=== PATIENT | male | born 1995 | race African-American/Black ===

== ENCOUNTER 2018-11-25 15:13 | Emergency (ER) | payer SELFPAY ==
[2018-11-25] MEDS ORDERED: ZIPRASIDONE HCL 20 MG CAPSULE PO ONE (17:44)
[2018-11-25] MEDS ORDERED: DIPHENHYDRAMINE HCL 50 MG CAPSULE PO ONE (17:45)
[2018-11-25] MEDS ORDERED: OLANZAPINE 5 MG TAB.RAPDIS PO ONE (17:45)
--- NOTE | 2018-11-25 17:59 | ER Document Report ---
ED Psych Disorder / Suicide - General TRAVEL OUTSIDE OF THE U.S. IN LAST 30 DAYS: No <NINA BUCKLEY - Last Filed: 11/26/18 11:09> <JAYLA PAYNE - Last Filed: 11/26/18 11:16> - General Chief Complaint: Psych Problem Stated Complaint: ANXIETY Time Seen by Provider: 11/25/18 17:43 Notes: Patient brought in by his mother because he is acting strange and out of control.. Patient has a history of bipolar disorder, PTSD, and was once told he has schizophrenia. He has been on medications, (Depakote 250 twice daily, Zyprexa 20 mg daily, and one other medicine), but has been out of all of his medicines for a month and 1/2-2 months. They recently moved to [place] and do not have a local doctor or anyone to prescribe his medications. Mother says they are living in a hotel. Patient keeps saying he is smelling something and keep spraying around him in the hotel room. He says he is been seeing rats and the mother says there are none there. She says he has been having hallucinations. Feels that somebody is chasing him and shooting at him. This is the first visit to this facility for this patient. No other past medical history can be obtained. Mother says he has no other medical problems. (NINA BUCKLEY) Past Medical History - Social History Smoking Status: Unknown if Ever Smoked Family History: Reviewed & Not Pertinent Psychiatric Medical History: Reports: Hx Bipolar Disorder, Hx Post Traumatic Stress Disorder Surgical Hx: Negative <NINA BUCKLEY - Last Filed: 11/26/18 11:09> Review of Systems <NINA BUCKLEY - Last Filed: 11/26/18 11:09> - Review of Systems Notes: REVIEW OF SYSTEMS: (Information provided by mother, for the most part) CONSTITUTIONAL : Denies fever. EENT: Denies eye, ear, nose or mouth or throat pain or other symptoms. CARDIOVASCULAR: Denies chest pain. RESPIRATORY: Denies cough, chest congestion, or shortness of breath. GASTROINTESTINAL: Denies abdominal pain or nausea, vomiting, or diarrhea. GENITOURINARY: Denies difficulty or painful urinating, urinary frequency, blood in urine. MUSCULOSKELETAL: Denies back or neck pain. Denies joint pain or swelling. SKIN: Denies rash or skin lesions. NEUROLOGICAL: Denies LOC or altered mental status. Denies headache. Denies sensory loss or motor deficits. ALL OTHER SYSTEMS REVIEWED AND NEGATIVE. (NINA BUCKLEY) Physical Exam - Vital signs Interpretation: Normal <NINA BUCKLEY - Last Filed: 11/26/18 11:09> - Vital signs Vitals: Temp Pulse Resp BP Pulse Ox 98.1 F 76 18 128/73 H 98 11/26/18 05:24 11/26/18 05:24 11/26/18 05:24 11/26/18 05:24 11/26/18 05:24 Notes: PHYSICAL EXAMINATION: GENERAL: Well-appearing, in no acute distress. Ambulatory without difficulty. Seems to be somewhat confused HEAD: Atraumatic, normocephalic. EYES: Pupils equal round and reactive to light, extraocular movements intact. ENT: oropharynx clear without exudates. Moist mucous membranes. NECK: Normal range of motion, supple. LUNGS: Breath sounds clear and equal bilaterally. HEART: Regular rate and rhythm without murmurs. ABDOMEN: Soft, nontender. No guarding or rebound. No masses. BACK: No tenderness throughout entire back. EXTREMITIES: Normal range of motion without pain. NEUROLOGICAL: Normal speech, normal gait. Normal sensory, motor, and reflex exams. Awake, alert, and oriented x3. Cranial nerves normal. PSYCH: Confused, cooperative, seems to have to think about his responses to questions. SKIN: Warm, dry, no rashes. (NINA BUCKLEY) Course - Laboratory Result Diagrams: 11/25/18 18:25 11/25/18 18:25 <NINA BUCKLEY - Last Filed: 11/26/18 11:09> - Laboratory Result Diagrams: 11/25/18 18:25 11/25/18 18:25 <JAYLA PAYNE - Last Filed: 11/26/18 11:16> - Re-evaluation Re-evalutation: 11/25/18 18:06 Patient appears to be grossly psychotic. I have initiated treatment with Geodon 20 mg, Zyprexa 10 mg-itis, and 50 mg of Benadryl. IVC paperwork will be completed on the patient. 11/26/18 10:14 11/26/18 10:15 Morning rounds: Chart reviewed and patient interviewed. Patient says he is ready to be discharged. 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 Vital signs are all normal. Lab studies were all essentially normal. Patient appears to be medically stable for transfer or discharge. Coleen Buckley MD (NINA BUCKLEY) - Vital Signs Vital signs: Temp Pulse Resp BP Pulse Ox 98.1 F 76 18 128/73 H 98 11/26/18 05:24 11/26/18 05:24 11/26/18 05:24 11/26/18 05:24 11/26/18 05:24 - Laboratory Laboratory results interpreted by me: 11/25/18 11/25/18 11/25/18 18:25 18:25 18:43 RBC 5.84 H Hgb 17.4 H Total Protein 8.3 H Albumin 5.1 H Urine Ketones TRACE H Urine Urobilinogen 2.0 H Urine Ascorbic Acid 40 H Salicylates < 1.0 L Acetaminophen < 10 L Discharge <NINA BUCKLEY - Last Filed: 11/26/18 11:09> <JAYLA PAYNE - Last Filed: 11/26/18 11:16> - Discharge Clinical Impression: Schizoaffective disorder, bipolar type Condition: Stable Disposition: HOME, SELF-CARE Additional Instructions: You have been evaluated both medical and behavioral health teams have been deemed appropriate for discharge. You have been provided prescriptions for Cogentin 1 mg daily, Depakote 250 mg twice daily, Zyprexa 5 mg twice daily and Vistaril 50 mg every 6 hours as needed; these take as directed. You have been provided a local resource list of area providers including mobile crisis contact information. Please contact an outpatient mental health provider of your choice in the next 3-5 days to make an appointment. Panic Attack The cause of panic attacks is unknown. Symptoms can include chest pain, shortness of breath, palpitations, sweats, and a sense of smothering or impending doom. In time, the panic attacks can lead to generalized anxiety and phobias. Because the symptoms can mimic heart attack, pulmonary embolism, and other serious diseases, the physician has evaluated you for these conditions. There is no evidence of a serious problem. An acute panic attack usually goes away by itself without treatment. A severe attack can be treated with medicine to calm you. Long-term, antidepressant medicines may help prevent attacks. Counselling can also be very beneficial in dealing with panic attacks. Panic attacks are less likely if you are getting regular exercise, proper diet, and plenty of sleep. It's normal for panic attacks to cause many frightening symptoms. However, you should call or return if your symptoms change significantly or if you are worsening. AT ANY TIME, IF YOUR SYMPTOMS CHANGE SIGNIFICANTLY OR WORSEN OR YOU DEVELOP NEW SYMPTOMS, RETURN TO THE EMERGENCY DEPARTMENT IMMEDIATELY FOR RE-EVALUATION. Prescriptions: Hydroxyzine Pamoate [Vistaril 50 mg Capsule] 50 mg PO Q6HP PRN #15 capsule PRN Reason: Benztropine Mesylate [Cogentin 1 mg Tablet] 1 mg PO DAILY #15 tablet Divalproex Sodium [Depakote Er 250 Mg Tablet] 250 mg PO BID #30 tab.sr.24h Olanzapine [Zyprexa 5 mg Tablet] 5 mg PO BID #30 tablet Referrals: [facility] [Outside] - Follow up as needed [facility] [Outside] - Follow up in 3-5 days
[2018-11-25] MEDS ORDERED: DIVALPROEX SODIUM 250 MG TAB.SR.24H PO ONE (18:12)
[2018-11-25] MEDS ORDERED: ZIPRASIDONE HCL 20 MG CAPSULE PO PRN (18:28)
[2018-11-25 18:41] LABS: ABSOLUTE BASOPHILS # (AUTO) 0.1 10^3/uL (0.0-0.2); ABSOLUTE EOSINOPHILS # (AUTO) 0.1 10^3/uL (0.0-0.6); ABSOLUTE LYMPHOCYTES (AUTO) 2.4 10^3/uL (0.5-4.7); ABSOLUTE MONOCYTES (AUTO) 0.4 10^3/uL (0.1-1.4); BASOPHILS % (AUTO) 0.9 % (0-2); EOSINOPHILS % (AUTO) 1.9 % (0-6); HEMATOCRIT 50.6 % (37.9-51.0); HEMOGLOBIN 17.4 g/dL (13.5-17.0); LYMPHOCYTES % (AUTO) 34.3 % (13-45); MEAN CORPUSCULAR HEMOGLOBIN 29.8 pg (27.0-33.4); MEAN CORPUSCULAR HGB CONC 34.4 g/dL (32.0-36.0); MEAN CORPUSCULAR VOLUME 87 fl (80-97); PLATELET COUNT 254 10^3/uL (150-450); RED BLOOD COUNT 5.84 10^6/uL (4.35-5.55); RED CELL DISTRIBUTION WIDTH 13.2 % (11.5-14.0); SEGMENTED NEUTROPHILS % (AUTO) 56.9 % (42-78); TOTAL CELLS COUNTED % (AUTO) 100 %; WHITE BLOOD COUNT 7.1 10^3/uL (4.0-10.5)
[2018-11-25 19:03] LABS: ALANINE AMINOTRANSFERASE 35 U/L (21-72); ALBUMIN 5.1 g/dL (3.5-5.0); ALKALINE PHOSPHATASE 73 U/L (38-126); ANION GAP 11 (5-19); ASPARTATE AMINO TRANSFERASE 23 U/L (17-59); BILIRUBIN,DIRECT 0.3 mg/dL (0.0-0.4); BILIRUBIN,TOTAL 0.9 mg/dL (0.2-1.3); BLOOD UREA NITROGEN 12 mg/dL (7-20); CALCIUM 10.1 mg/dL (8.4-10.2); CARBON DIOXIDE 26 mmol/L (22-30); CHLORIDE 105 mmol/L (98-107); GLUCOSE 86 mg/dL (75-110); POTASSIUM 4.2 mmol/L (3.6-5.0); SODIUM 141.7 mmol/L (137-145); TOTAL PROTEIN 8.3 g/dL (6.3-8.2)
[2018-11-25 19:07] LABS: ACETAMINOPHEN < 10 ug/mL (10-30); ALCOHOL < 10 mg/dL (NONE DETECTED); SALICYLATE < 1.0 mg/dL (2.0-20.0)
[2018-11-25 19:09] LABS: APPEARANCE,URINE SLIGHTLY-CLOUDY; BILIRUBIN,URINE NEGATIVE (NEGATIVE); COLOR,URINE YELLOW; GLUCOSE, URINE NEGATIVE (NEGATIVE); KETONES,URINE TRACE mg/dL (NEGATIVE); LEUKOCYTE ESTERASE,URINE NEGATIVE (NEGATIVE); NITRITE,URINE NEGATIVE (NEGATIVE); PROTEIN,URINE NEGATIVE (NEGATIVE); URINE SPECIFIC GRAVITY 1.024
[2018-11-25 19:25] LABS: URINE AMPHETAMINES SCREEN NEGATIVE; URINE BARBITURATES SCREEN NEGATIVE; URINE BENZODIAZEPINES SCREEN NEGATIVE; URINE COCAINE SCREEN NEGATIVE; URINE MARIJUANA (THC) SCREEN NEGATIVE; URINE METHADONE SCREEN NEGATIVE; URINE PHENCYCLIDINE SCREEN NEGATIVE
[2018-11-26] MEDS ORDERED: OLANZAPINE 5 MG TABLET PO ONE (11:12)
[2018-11-26 11:29] VITALS: BP 137/81
--- NOTE | 2018-11-26 12:11 | PSYCHOLOGICAL NOTE ---
Psych Note - Psych Note Date seen by psych provider: 11/26/18 Time seen by psych provider: 10:00 Psych Note: Reason for Consult: anxiety Patient brought in by his mother because he is acting strange and out of control.. Patient has a history of bipolar disorder, PTSD, and was once told he has schizophrenia. Patient explains that he has been taking his medication however is unable to identify his medications. Patient reports she came to [facility] ED because he had a p anic attack. Patient reports she is feeling fine and wants to go home. Patient is noted to have some difficulty with organized linear conversation as evidenced by some disorganization, easily loses train of thought, and mild confusion. Patient denies thoughts of wanting to harm himself or others. He is unable to identify any mental health diagnosis other than anxiety. Patient's mother arrived to [facility]. She reports the patient has had diagnosis of bipolar disorder and PTSD. She reports that at one point in time he was told the possible schizophrenia. She discloses that when he is on his medication everything is fine however recently they just moved to [place] and have had difficulty switching over his Medicaid because the government shutdown. She reports that the patient has been off his Depakote for at least one month. She confirms that she can fill the prescriptions if they are within reasonable amount. She reports she would like to take the patient home as he is very close to his baseline and feels that staying here will agitate him more. She reports that she will return if the patient decompensates. Behavioral health team contacted [facility] for patient's medications. Patient has not filled prescriptions since 2017 however at that time he was on Depakote 500 mg twice daily, Zyprexa 20 mg daily Cogentin 2 mg daily and Vistaril 50 mg every 6 hours PRN. 296.80 (F31.9) Unspecified Bipolar disorder per history provided by patient's mother 309.81 (F43.10) PTSD per history provided by patient's mother R/O Schizoaffective bipolar type per history provided by patient's mother Impression/plan: Patient is cleared from acute psychiatric services. Patient's mother reports patient is close to baseline and would like to take him home, she feels that he will become more agitated if he stays here. She reports that she will bring him back if he starts to decompensate. She reports that she would just like assistance with medication since coming to [place] and they have been unable to switch over patient's Medicaid. Patient is able to have a conversation with clinician however does demonstrate some disorganization and mild confusion. Patient does deny thoughts of wanting to harm himself or others and reports that he wants to take medication. Dr. Pillai was consulted and the care management this patient; attending physicians in agreement with recommendations and disposition.
--- NOTE | 2018-11-26 12:39 | EKG REPORT ---
SEVERITY:- NORMAL ECG - SINUS RHYTHM : Confirmed by: Adolfo Harden 26-Nov-2018 12:39:09
== END 2018-11-26 11:27 | disposition home or self-care (01) ==
LOC: ER 15:13
DX: F25.0 Schizoaffective disorder, bipolar type (principal); F41.9 Anxiety disorder, unspecified; F43.10 Post-traumatic stress disorder, unspecified
CPT/HCPCS: 93005; 99284; 36415; 80307 ×4; 85025; 80053; 81001; 93010; J3490 ×2

== ENCOUNTER 2018-12-30 23:49 | Emergency (ER) | payer SELFPAY ==
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
[2018-12-31 01:24] LABS: APPEARANCE,URINE SLIGHTLY-CLOUDY; BILIRUBIN,URINE NEGATIVE (NEGATIVE); CALCIUM OXALATE CRYSTALS,URINE FEW /HPF; COLOR,URINE AMBER; GLUCOSE, URINE NEGATIVE (NEGATIVE); KETONES,URINE TRACE mg/dL (NEGATIVE); LEUKOCYTE ESTERASE,URINE NEGATIVE (NEGATIVE); NITRITE,URINE NEGATIVE (NEGATIVE); PROTEIN,URINE 30 mg/dL (NEGATIVE); URINE SPECIFIC GRAVITY 1.032
[2018-12-31 01:45] LABS: URINE AMPHETAMINES SCREEN NEGATIVE; URINE BARBITURATES SCREEN NEGATIVE; URINE BENZODIAZEPINES SCREEN NEGATIVE; URINE COCAINE SCREEN NEGATIVE; URINE MARIJUANA (THC) SCREEN NEGATIVE; URINE METHADONE SCREEN NEGATIVE; URINE PHENCYCLIDINE SCREEN NEGATIVE
[2018-12-31 02:11] LABS: ABSOLUTE EOSINOPHILS # (AUTO) 0.1 10^3/uL (0.0-0.6); ABSOLUTE MONOCYTES (AUTO) 0.4 10^3/uL (0.1-1.4); TOTAL CELLS COUNTED % (AUTO) 100 %
[2018-12-31 02:21] LABS: ABSOLUTE LYMPHOCYTES (AUTO) 2.8 10^3/uL (0.5-4.7); ABSOLUTE NEUT (AUTO) 3.3 10^3/uL (1.7-8.2); BASOPHILS % (AUTO) 0.4 % (0-2); EOSINOPHILS % (AUTO) 1.8 % (0-6); HEMATOCRIT 46.2 % (37.9-51.0); HEMOGLOBIN 16.2 g/dL (13.5-17.0); LYMPHOCYTES % (AUTO) 41.6 % (13-45); MEAN CORPUSCULAR HEMOGLOBIN 30.2 pg (27.0-33.4); MEAN CORPUSCULAR HGB CONC 35.1 g/dL (32.0-36.0); MEAN CORPUSCULAR VOLUME 86 fl (80-97); MONOCYTES % (AUTO) 6.7 % (3-13); PLATELET COUNT 236 10^3/uL (150-450); RED BLOOD COUNT 5.37 10^6/uL (4.35-5.55); RED CELL DISTRIBUTION WIDTH 13.3 % (11.5-14.0); SEGMENTED NEUTROPHILS % (AUTO) 49.5 % (42-78); WHITE BLOOD COUNT 6.7 10^3/uL (4.0-10.5)
[2018-12-31 02:30] LABS: ALANINE AMINOTRANSFERASE 49 U/L (21-72); ALBUMIN 4.8 g/dL (3.5-5.0); ALKALINE PHOSPHATASE 58 U/L (38-126); ANION GAP 14 (5-19); ASPARTATE AMINO TRANSFERASE 34 U/L (17-59); BILIRUBIN,DIRECT 0.2 mg/dL (0.0-0.4); BILIRUBIN,TOTAL 0.6 mg/dL (0.2-1.3); BLOOD UREA NITROGEN 14 mg/dL (7-20); CALCIUM 9.5 mg/dL (8.4-10.2); CARBON DIOXIDE 22 mmol/L (22-30); CHLORIDE 104 mmol/L (98-107); GLUCOSE 109 mg/dL (75-110); SODIUM 139.5 mmol/L (137-145); TOTAL PROTEIN 7.6 g/dL (6.3-8.2)
[2018-12-31 02:39] LABS: ACETAMINOPHEN < 10 ug/mL (10-30); ALCOHOL < 10 mg/dL (NONE DETECTED); SALICYLATE < 1.0 mg/dL (2.0-20.0)
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
--- NOTE | 2018-12-31 10:23 | ER Document Report ---
Doctor's Note Notes: 12/31/18 10:19 Patient is waiting for placement after he was placed on IVC for severe agitation and hallucination. Patient is medically cleared for placement. Patient was seen this morning by Max the psychiatric chief warden. She said she will continue to make efforts to find placement for the patient. I re-evaluated this patient this morning. Patient has no new complaints. He denies any suicidal or homicidal. On exam he is hypervigilant and looks mildly agitated. He is in no obvious distress. The rest of the exam is unremarkable. The plan will be to continue efforts to find placement for the patient by the psychiatric service.
[2018-12-31 12:56] VITALS: BP 146/86
--- NOTE | 2019-01-01 22:44 | EKG REPORT ---
SEVERITY:- NORMAL ECG - SINUS RHYTHM : Confirmed by: Rodney Vasquez MD 01-Jan-2019 22:43:25
== END 2018-12-31 12:57 ==
LOC: ER 23:49
DX: R45.1 Restlessness and agitation (principal); R44.3 Hallucinations, unspecified; F17.200 Nicotine dependence, unspecified, uncomplicated
CPT/HCPCS: 36415; 80053; 80307; 81001; 85025; 93005; 93010; 99285

== ENCOUNTER 2019-03-28 09:53 | Emergency (ER) | payer MEDICAID ==
--- NOTE | 2019-03-28 11:06 | ER Document Report ---
ED General - General Chief Complaint: Psych Problem Stated Complaint: BEHAVIORAL Time Seen by Provider: 03/28/19 10:06 Information source: Patient, Parent Notes: 23-year-old male with past medical history including bipolar disorder posterior manic stress disorder who presents with mom secondary to the patient not taking his medications for 2 months and having "erratic behavior". Mom states that the patient's mood is very labile. She states that often times he becomes angry and then later he will tell her how much she loves her. Patient himself denies any suicidal ideations. He denies any auditory visual hallucinations. Patient states he does not like the way the medications make him feel. Patient and mom both admit to smoking weed and drinking alcohol. TRAVEL OUTSIDE OF THE [place] IN LAST 30 DAYS: No - Related Data Allergies/Adverse Reactions: No Known Allergies Allergy (Verified 12/31/18 00:09) Past Medical History - Social History Smoking Status: Current Every Day Smoker Family History: Reviewed & Not Pertinent Renal/ Medical History: Denies: Hx Peritoneal Dialysis Psychiatric Medical History: Reports: Hx Bipolar Disorder, Hx Post Traumatic Stress Disorder Review of Systems - Review of Systems Constitutional: denies: Fever EENT: denies: Eye discharge, Nose discharge Respiratory: denies: Short of breath Gastrointestinal: denies: Vomiting Genitourinary: denies: Dysuria Musculoskeletal: denies: Leg swelling Skin: Other - no hives. denies: Rash Neurological/Psychological: Other - no slurred speech -: Yes All other systems reviewed and negative Physical Exam - Vital signs Vitals: Temp Pulse Resp BP Pulse Ox 98.2 F 64 18 115/52 L 96 03/28/19 09:54 03/28/19 09:54 03/28/19 09:54 03/28/19 09:54 03/28/19 09:54 Notes: Reviewed vital signs and nursing note as charted by RN. CONSTITUTIONAL: Alert and oriented; slightly flat affect. Well-appearing; well- nourished HEAD: Normocephalic; atraumatic EYES: PERRL; no nystagmus ENT: Normal nose; no rhinorrhea; moist mucous membranes; pharynx without lesions noted NECK: Supple without meningismus; non-tender; no cervical lymphadenopathy, no m asses CARD: Regular rate and rhythm; no murmurs; symmetric distal pulses RESP: Normal chest excursion without splinting or tachypnea; breath sounds clear and equal bilaterally; no wheezes, no rhonchi, no rales ABD/GI: Normal bowel sounds; non-distended; soft, non-tender; no palpable organomegaly or masses BACK: The back appears normal and is non-tender to palpation EXT: Normal ROM in all joints; non-tender to palpation; no edema SKIN: No acute lesions noted NEURO: CN 2-12 intact; 5/5 bilateral upper and lower extremity strength with sensation intact to light touch PSYCH: Slightly flat affect Course - Re-evaluation Re-evalutation: 03/28/19 11:05 Given the history and physical examination, we will obtain basic labs, provide behavioral health/psychology consult, and reassess. Patient is denying any auditory or visual hallucinations. He is denying any suicidal homicidal ideations. Mom is concerned with the patient having some labile mood issues. 03/28/19 11:19 EKG shows a heart rate of 60, normal sinus rhythm, normal axis, no ST elevation or depression. 03/28/19 14:44 Labs and vital signs as recorded. Patient has been seen and evaluated by the psychology team and they have restarted the patient's medications. - Vital Signs Vital signs: Temp Pulse Resp BP Pulse Ox 98.6 F 78 18 123/90 H 98 03/28/19 10:19 03/28/19 10:19 03/28/19 10:19 03/28/19 10:19 03/28/19 10:19 - Laboratory Result Diagrams: 03/28/19 10:50 03/28/19 10:50 Laboratory results interpreted by me: 03/28/19 10:50 Total Bilirubin 1.4 H AST 15 L ALT 19 L Salicylates < 1.0 L Acetaminophen < 10 L Discharge - Discharge Clinical Impression: Labile mood Condition: Fair Disposition: PSYCH HOSP/UNIT
[2019-03-28 11:09] LABS: ABSOLUTE EOSINOPHILS # (AUTO) 0.1 10^3/uL (0.0-0.6); ABSOLUTE LYMPHOCYTES (AUTO) 1.9 10^3/uL (0.5-4.7); ABSOLUTE MONOCYTES (AUTO) 0.3 10^3/uL (0.1-1.4); ABSOLUTE NEUT (AUTO) 2.2 10^3/uL (1.7-8.2); BASOPHILS % (AUTO) 0.5 % (0-2); EOSINOPHILS % (AUTO) 2.2 % (0-6); HEMATOCRIT 45.9 % (37.9-51.0); LYMPHOCYTES % (AUTO) 41.8 % (13-45); MEAN CORPUSCULAR HEMOGLOBIN 30.5 pg (27.0-33.4); MEAN CORPUSCULAR HGB CONC 34.8 g/dL (32.0-36.0); MEAN CORPUSCULAR VOLUME 88 fl (80-97); MONOCYTES % (AUTO) 6.7 % (3-13); PLATELET COUNT 212 10^3/uL (150-450); RED BLOOD COUNT 5.24 10^6/uL (4.35-5.55); RED CELL DISTRIBUTION WIDTH 13.1 % (11.5-14.0); SEGMENTED NEUTROPHILS % (AUTO) 48.8 % (42-78); TOTAL CELLS COUNTED % (AUTO) 100 %; WHITE BLOOD COUNT 4.5 10^3/uL (4.0-10.5)
[2019-03-28 11:33] LABS: ALANINE AMINOTRANSFERASE 19 U/L (21-72); ALBUMIN 4.4 g/dL (3.5-5.0); ALKALINE PHOSPHATASE 50 U/L (38-126); ANION GAP 10 (5-19); ASPARTATE AMINO TRANSFERASE 15 U/L (17-59); BILIRUBIN,DIRECT 0.1 mg/dL (0.0-0.4); BILIRUBIN,TOTAL 1.4 mg/dL (0.2-1.3); BLOOD UREA NITROGEN 12 mg/dL (7-20); CALCIUM 9.6 mg/dL (8.4-10.2); CARBON DIOXIDE 26 mmol/L (22-30); CHLORIDE 107 mmol/L (98-107); GLUCOSE 89 mg/dL (75-110); POTASSIUM 4.2 mmol/L (3.6-5.0); SODIUM 142.9 mmol/L (137-145); TOTAL PROTEIN 7.5 g/dL (6.3-8.2)
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
[2019-03-28 12:01] LABS: ACETAMINOPHEN < 10 ug/mL (10-30); ALCOHOL < 10 mg/dL (NONE DETECTED); SALICYLATE < 1.0 mg/dL (2.0-20.0)
[2019-03-28] MEDS: DIVALPROEX SODIUM 250 MG TABLET.DR PO SCH ×2 (12:42→21:19)
--- NOTE | 2019-03-28 13:12 | EKG REPORT ---
SEVERITY:- NORMAL ECG - SINUS RHYTHM : Confirmed by: Rodney Vasquez MD 28-Mar-2019 13:11:02
[2019-03-28] MEDS: HYDROXYZINE PAMOATE 25 MG CAPSULE PO SCH ×2 (14:03→17:26)
[2019-03-28 17:50] LABS: AMORPHOUS SEDIMENT,URINE TRACE /HPF; APPEARANCE,URINE CLOUDY; BILIRUBIN,URINE NEGATIVE (NEGATIVE); COLOR,URINE YELLOW; GLUCOSE, URINE NEGATIVE (NEGATIVE); KETONES,URINE NEGATIVE (NEGATIVE); LEUKOCYTE ESTERASE,URINE NEGATIVE (NEGATIVE); NITRITE,URINE NEGATIVE (NEGATIVE); PROTEIN,URINE NEGATIVE (NEGATIVE); URINE SPECIFIC GRAVITY 1.014
[2019-03-28 18:02] LABS: URINE AMPHETAMINES SCREEN NEGATIVE; URINE BARBITURATES SCREEN NEGATIVE; URINE BENZODIAZEPINES SCREEN NEGATIVE; URINE COCAINE SCREEN NEGATIVE; URINE MARIJUANA (THC) SCREEN NEGATIVE; URINE METHADONE SCREEN NEGATIVE; URINE PHENCYCLIDINE SCREEN NEGATIVE
[2019-03-28] MEDS: BENZTROPINE MESYLATE 1 MG TABLET PO SCH (21:19)
[2019-03-28] MEDS: OLANZAPINE 5 MG TABLET PO SCH (21:19)
[2019-03-29] MEDS: DIVALPROEX SODIUM 250 MG TABLET.DR PO SCH ×2 (08:00→22:18)
[2019-03-29] MEDS: HYDROXYZINE PAMOATE 25 MG CAPSULE PO SCH ×3 (09:01→17:37)
[2019-03-29] MEDS ORDERED: DIPHENHYDRAMINE HCL 50 MG/ML VIAL IM ONE (13:44)
[2019-03-29] MEDS ORDERED: CHLORPROMAZINE HCL INJ 25 MG/1 ML AMPULE IM ONE (13:44)
[2019-03-29] MEDS ORDERED: OLANZAPINE INJ/PF 10 MG SDV IM ONE (13:44)
--- NOTE | 2019-03-29 16:46 | PSYCHOLOGICAL NOTE ---
Psych Note - Psych Note Date seen by psych provider: 03/29/19 Psych Note: Diagnosis: Unspecified Bipolar and Related Disorder by History Posttraumatic Stress Disorder by History Medication recommendations made by the psychiatric medical provider, Dr. Ian MD., includes: Change Depakote to 500MG twice a day for mood stabilization Change Zyprexa to 5MG twice day for psychosis/mood stabilization/impulse control Change Cogentin to 1MG twice a day to curb tremor side effects often associated with antipsychotic medications Add Thorazine 50MG twice a day for psychosis/agitation Per Dr. Stephenson Now Order: Thorazine 50MG IM Zyprexa 5MG IM Benadryl 50MG IM Impression/Plan: Recommendation to complete full IVC and hold another night for continued medication stabilization. Patient became more and more agitated as the day went on after he found out he was staying another night. Consulted with Dr. Pillai regarding the management and care of patient. ED Physician in agreement with recommendations.
--- NOTE | 2019-03-29 19:43 | ER Document Report ---
Entered by LARRY FUNEZ SCRIBE 03/29/19 [id number] Acting as scribe for:JENNIFER PEDERSON DO Doctor's Note Notes: 03/29/19 12:49 Patient is a 23-year-old male with bipolar disorder, manic stress disorder presented to the emergency department accompanied by mom due to the patient not taking his medications for 2 months and having "erratic behavior". Patient at bedside states he feels fine and denies any SI, HI or hallucinations. Patient states he is here because he needed a medication refill. When asked, patient states he knows how to refill his medications and where to go but later states he does not have a PCP or psychiatrist. He further denies any focal symptoms. Patient is medically stable. GENERAL: Alert, interacts well. No acute distress. HEAD: Normocephalic, atraumatic. EYES: Pupils equal, round, and reactive to light. Extraocular movements intact. ENT: Oral mucosa moist, tongue midline. NECK: Full range of motion. Supple. Trachea midline. LUNGS: Clear to auscultation bilaterally, no wheezes, rales, or rhonchi. No respiratory distress. HEART: Regular rate and rhythm. No murmurs, gallops, or rubs. ABDOMEN: Soft, non-tender. Non-distended. Bowel sounds present in all 4 quadrants. No guarding, rigidity, or rebound. EXTREMITIES: Moves all 4 extremities spontaneously. No edema, radial and dorsalis pedis pulses 2/4 bilaterally. No cyanosis. NEUROLOGICAL: Alert and oriented x3. Normal speech. PSYCH: Normal affect, normal mood. SKIN: Warm, dry, normal turgor. No rashes or lesions noted. 03/29/19 14:19 Patient was standing into the hallway, screaming "Let me the fuck out of here". We have been a unable to de-escalate his behavior using verbal techniques, he expresses no insight or understanding and why this is inappropriate behavior. He was turned into a full IVC, sedated and placed in 4 point restraints. 03/29/19 19:43 I personally performed the services described in the documentation, reviewed and edited the documentation which was dictated to the scribe in my presence, and it accurately records my words and actions.
[2019-03-29] MEDS: BENZTROPINE MESYLATE 1 MG TABLET PO SCH (22:18)
[2019-03-29] MEDS: OLANZAPINE 5 MG TABLET PO SCH (22:18)
[2019-03-30] MEDS: DIVALPROEX SODIUM 250 MG TABLET.DR PO SCH (07:55)
[2019-03-30] MEDS: HYDROXYZINE PAMOATE 25 MG CAPSULE PO SCH (09:20)
[2019-03-30] MEDS ORDERED: OLANZAPINE 5 MG TABLET PO SCH (10:00)
[2019-03-30] MEDS ORDERED: CHLORPROMAZINE HCL 50 MG TABLET PO SCH (10:00)
[2019-03-30] MEDS ORDERED: DIVALPROEX SODIUM 500 MG TAB.SR.24H PO SCH (10:00)
[2019-03-30] MEDS ORDERED: BENZTROPINE MESYLATE 1 MG TABLET PO SCH (10:00)
[2019-03-30] MEDS ORDERED: DIVALPROEX SODIUM 250 MG TAB.SR.24H PO ONE (10:14)
--- NOTE | 2019-03-30 10:22 | ER Document Report ---
Doctor's Note Notes: 03/30/19 10:20 Rounds: Chart reviewed and patient interviewed. Patient is up walking around the emergency department. Wants to go home. Being evaluated for bipolar disorder, PTSD, and suicidal thoughts. He also had aggressive behavior when he came in. Not on any current medications. Vital signs are all normal. Lab s tudies were all essentially normal. Patient appears to be medically stable for transfer or discharge. Clemente Tello MD
--- NOTE | 2019-03-30 11:40 | PSYCHOLOGICAL NOTE ---
Psych Note - Psych Note Date seen by psych provider: 03/30/19 Psych Note: Diagnosis: Unspecified Bipolar and Related Disorder by History Posttraumatic Stress Disorder by History Impression/Plan: Patient is cleared from acute psychiatric services. Recommendation to rescind IVC. He has denied SI/HI since coming to the ED. He had an agitated/behavioral episode yesterday later afternoon lasting 3-4 hours (utilized chemical sedation, followed up by scheduled medication changes) and has since been calm. He has been taking medications when administered and Depakote Level is 64.5 within therapeutic range. [facility] (this clinician spoke to Galdino, Galdino talked with patient and scheduled meeting for tomorrow at 1600) and [facility] involved and [facility] has coordinated care. Provided patient with outpatient MH resource sheet which high lighted [facility]. He was encouraged to take medications as prescribed and see a doctor regularly. Mother made aware of plan of care (which included patient taking bus home as she does not have transportation). Consulted with Dr. Pillai regarding the management and care of patient. ED Physician in agreement with recommendations.
[2019-03-30 15:23] VITALS: BP 141/80
== END 2019-03-30 15:23 | disposition home or self-care (01) ==
LOC: ER 09:53
DX: R45.851 Suicidal ideations (principal); F31.9 Bipolar disorder, unspecified; Z91.14 Patient's other noncompliance with medication regimen
CPT/HCPCS: 93005; 99291; 96375; 96365; 96366; 96367; 96368; 36415; 80307 ×4; 85025; 80053; 81001; 80164; 93010; J3490 ×14; J3230; J1200

== ENCOUNTER 2019-04-06 05:04 | Emergency (ER) | payer MEDICAID ==
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
[2019-04-06 05:55] LABS: ABSOLUTE EOSINOPHILS # (AUTO) 0.2 10^3/uL (0.0-0.6); ABSOLUTE LYMPHOCYTES (AUTO) 2.7 10^3/uL (0.5-4.7); ABSOLUTE MONOCYTES (AUTO) 0.4 10^3/uL (0.1-1.4); ABSOLUTE NEUT (AUTO) 1.9 10^3/uL (1.7-8.2); BASOPHILS % (AUTO) 0.9 % (0-2); EOSINOPHILS % (AUTO) 3.5 % (0-6); HEMATOCRIT 50.5 % (37.9-51.0); HEMOGLOBIN 17.5 g/dL (13.5-17.0); LYMPHOCYTES % (AUTO) 52.1 % (13-45); MEAN CORPUSCULAR HEMOGLOBIN 30.2 pg (27.0-33.4); MEAN CORPUSCULAR HGB CONC 34.7 g/dL (32.0-36.0); MEAN CORPUSCULAR VOLUME 87 fl (80-97); MONOCYTES % (AUTO) 6.9 % (3-13); PLATELET COUNT 269 10^3/uL (150-450); RED CELL DISTRIBUTION WIDTH 12.7 % (11.5-14.0); SEGMENTED NEUTROPHILS % (AUTO) 36.6 % (42-78); TOTAL CELLS COUNTED % (AUTO) 100 %; WHITE BLOOD COUNT 5.2 10^3/uL (4.0-10.5)
[2019-04-06 06:14] LABS: ALANINE AMINOTRANSFERASE 40 U/L (21-72); ALBUMIN 4.9 g/dL (3.5-5.0); ALKALINE PHOSPHATASE 54 U/L (38-126); ANION GAP 11 (5-19); ASPARTATE AMINO TRANSFERASE 22 U/L (17-59); BILIRUBIN,DIRECT 0.2 mg/dL (0.0-0.4); BILIRUBIN,TOTAL 1.6 mg/dL (0.2-1.3); BLOOD UREA NITROGEN 12 mg/dL (7-20); CALCIUM 10.1 mg/dL (8.4-10.2); CARBON DIOXIDE 24 mmol/L (22-30); CHLORIDE 104 mmol/L (98-107); GLUCOSE 107 mg/dL (75-110); POTASSIUM 4.2 mmol/L (3.6-5.0); SODIUM 139.1 mmol/L (137-145); TOTAL PROTEIN 8.3 g/dL (6.3-8.2)
[2019-04-06 06:15] LABS: ACETAMINOPHEN < 10 ug/mL (10-30); ALCOHOL < 10 mg/dL (NONE DETECTED); SALICYLATE < 1.0 mg/dL (2.0-20.0)
--- NOTE | 2019-04-06 07:50 | EKG REPORT ---
SEVERITY:- NORMAL ECG - SINUS RHYTHM : Confirmed by: Rosa Elena Oliver MD 06-Apr-2019 07:48:55
[2019-04-06 09:01] LABS: APPEARANCE,URINE SLIGHTLY-CLOUDY; BILIRUBIN,URINE NEGATIVE (NEGATIVE); COLOR,URINE AMBER; GLUCOSE, URINE NEGATIVE (NEGATIVE); KETONES,URINE TRACE mg/dL (NEGATIVE); LEUKOCYTE ESTERASE,URINE NEGATIVE (NEGATIVE); NITRITE,URINE NEGATIVE (NEGATIVE); PROTEIN,URINE 30 mg/dL (NEGATIVE); URINE SPECIFIC GRAVITY 1.031; UROBILINOGEN,URINE NEGATIVE mg/dL (<2.0)
[2019-04-06 09:14] LABS: URINE AMPHETAMINES SCREEN NEGATIVE; URINE BARBITURATES SCREEN NEGATIVE; URINE BENZODIAZEPINES SCREEN NEGATIVE; URINE COCAINE SCREEN NEGATIVE; URINE MARIJUANA (THC) SCREEN NEGATIVE; URINE METHADONE SCREEN NEGATIVE; URINE PHENCYCLIDINE SCREEN NEGATIVE
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
[2019-04-06] MEDS: OLANZAPINE 5 MG TABLET PO SCH (18:45)
[2019-04-06] MEDS: BENZTROPINE MESYLATE 1 MG TABLET PO SCH (18:45)
[2019-04-06] MEDS: CHLORPROMAZINE HCL 50 MG TABLET PO SCH (18:45)
[2019-04-06] MEDS: DIVALPROEX SODIUM 500 MG TAB.SR.24H PO SCH (18:45)
[2019-04-07] MEDS: DIVALPROEX SODIUM 500 MG TAB.SR.24H PO SCH (09:39)
[2019-04-07] MEDS: OLANZAPINE 5 MG TABLET PO SCH (09:39)
[2019-04-07] MEDS: CHLORPROMAZINE HCL 50 MG TABLET PO SCH (09:39)
[2019-04-07] MEDS: BENZTROPINE MESYLATE 1 MG TABLET PO SCH (09:39)
--- NOTE | 2019-04-07 09:39 | ER Document Report ---
Doctor's Note Notes: 04/07/19 09:38 Rounds: Chart reviewed and patient interviewed. Patient says he feeling better. Patient being evaluated for inappropriate behavior and a history of bipolar disorder. Lab studies were all essentially normal except for hemoglobin of 17.5. Vital signs were normal. Patient has been started on Thorazine, Dep akote, and Zyprexa. Patient appears to be medically stable for transfer or discharge. Clemente Tello MD
[2019-04-07 11:31] VITALS: BP 112/67
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
== END 2019-04-07 11:30 ==
LOC: ER 05:04
DX: F31.9 Bipolar disorder, unspecified (principal)
CPT/HCPCS: 93005; 99285; 36415; 80307 ×4; 85025; 80053; 81001; 80164; 93010; J3490 ×8